=== PATIENT | male | born 1950 | race Caucasian/White ===

== ENCOUNTER → 2022-08-09 | Outpatient (CLI) | payer MEDICARE, SELFPAY ==
--- NOTE | 2022-08-11 10:13 | PFT ---
INTRODUCTION: The patient is a 72-year-old male that presents for pulmonary function studies secondary to a diagnosis of hypoxemia. Respiratory therapy reported good patient effort. Bronchodilators were used during testing. INTERPRETATION: Forced expiration spirometry demonstrates the presence of a mild large airways obstructive ventilatory defect. There was no significant response to aerosolized bronchodilators. Spirograms are of good quality but plateau slowly indicating slow emptying of the lungs. Body plethysmography was performed and demonstrated lung volumes to be within normal limits. Diffusing capacity by single breath CO was also within normal limits. IMPRESSION: Irreversible mild large airways obstructive ventilatory defect with preserved lung volumes and diffusing capacity.
== END | disposition home or self-care (01) ==
PROVIDERS: PCP Internal Medicine; Referring Provider Internal Medicine Critical Care Medicine; Visit Provider Internal Medicine Critical Care Medicine
DX: R09.02 Hypoxemia (principal)
CPT/HCPCS: 94060; 94726; 94729

== ENCOUNTER → 2022-08-14 | Outpatient (CLI) | payer MEDICARE, SELFPAY ==
[2022-08-14 12:41] VITALS: PULSE 73; PULSE 74; PULSE 76; PULSE 81; PULSE 85; PULSE 87; PULSE 92; PULSE 97; O2SAT 88; O2SAT 89; O2SAT 91; O2SAT 92; O2SAT 94
--- NOTE | 2022-08-14 12:43 | CPS ---
Patient wears 2-3 lpm at home. Wears 3 lpm pulse dose while ambulating. Patient started testing on room air, SpO2 91%. Patient experienced some dizziness and moderately severe hip pain during testing. Patient did not take any breaks during testing other than when I had him turn his O2 on at the 3rd minute.
--- NOTE | 2022-08-15 15:15 | PCM.PSN.6M ---
PSN 6 Minute Walk Test 6 Minute Walk Test 6 Minute Walk Test: 6 Minute Walk Test PSN:6-Minute Walk Test Start: 08/14/22 12:41 Freq: Status: Active Protocol: [id number].6MINW Document 08/14/22 12:41 SATHISH (Rec: 08/14/22 12:45 SATHISH [id number]) 6 Minute Walk Test Date Performed 08/14/22 Time Performed 12:30 Height 6 ft Weight: 86.183 kg Weight in Pounds 190.[address]: Alfredito Rice Assistive device used: None Pre-test Oxygen Delivery Method Room Air Pulse Ox (%) 91 Pulse Rate (60-100 beats/min) 73 Dyspnea Rebeca Scale (0-10) 0 Exertion Rebeca Scale (6-20) 6 1st minute Oxygen Delivery Method Room Air Pulse Ox (%) 91 Pulse Rate (60-100 beats/min) 76 2nd minute Oxygen Delivery Method Room Air Pulse Ox (%) 89 Pulse Rate (60-100 beats/min) 81 3rd minute Oxygen Delivery Method Room Air Pulse Ox (%) 88 Pulse Rate (60-100 beats/min) 92 4th minute Oxygen Flow Rate (L/min) (L/min) 3 Oxygen Delivery Method Nasal Cannula Pulse Ox (%) 92 Pulse Rate (60-100 beats/min) 85 5th minute Oxygen Flow Rate (L/min) (L/min) 3 Oxygen Delivery Method Nasal Cannula Pulse Ox (%) 92 Pulse Rate (60-100 beats/min) 87 6th minute Oxygen Flow Rate (L/min) (L/min) 3 Oxygen Delivery Method Nasal Cannula Pulse Ox (%) 92 Pulse Rate (60-100 beats/min) 97 Dyspnea Rebeca Scale (0-10) 3 Exertion Rebeca Scale (6-20) 14 Post-test Oxygen Flow Rate (L/min) (L/min) 3 Oxygen Delivery Method Nasal Cannula Pulse Ox (%) 94 Pulse Rate (60-100 beats/min) 74 Full Laps Walked 20 Partial Lap, Number of Tiles Walked 10 Total Distance Walked (ft) 1190 08/14/22 12:43 Cardiopulmonary Services by Anna Forbes Patient wears 2-3 lpm at home. Wears 3 lpm pulse dose while ambulating. Patient started testing on room air, SpO2 91%. Patient experienced some dizziness and moderately severe hip pain during testing. Patient did not take any breaks during testing other than when I had him turn his O2 on at the 3rd minute. Initialized on 08/14/22 12:43 - END OF NOTE Interpretation Interpretation: The patient was noted to be 91% on room air at rest. The patient then started ambulating, but desaturated to 80% in the third minute. The patient was placed on 3 L pulsed dose and was able to maintain saturations throughout testing. No significant tachycardia was noted. In total, the patient traveled 1190 feet over the course of 6 minutes with the assistance of a cane and 1 break. Recommendations Recommendations: No supplemental oxygen is indicated at rest, but patient should be using 3 L pulsed dose with any ambulation.
== END | disposition home or self-care (01) ==
LOC: PSN 12:03
PROVIDERS: PCP Internal Medicine; Visit Provider Internal Medicine Critical Care Medicine
DX: R09.02 Hypoxemia (principal)
CPT/HCPCS: 94618

== ENCOUNTER → 2022-09-22 | Outpatient (CLI) | payer MEDICARE, SELFPAY ==
--- NOTE | 2022-09-22 11:46 | NM_ITS ---
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 VENTILATION-PERFUSION LUNG SCINTIGRAPHY COMPARISON: None available FINDINGS: The patient was administered 50.0 mCi 99m Tc DTPA aerosol. The aerosol ventilation study demonstrates heterogeneous ventilation identified throughout the bilateral lung boss. Central clumping of the aerosol is noted in the bilateral hemithorax. Following the intravenous administration of 5.5 mCi of 99m Tc MAA the pulmonary perfusion study reveals relatively uniform perfusion throughout both lung boss. There are no segmental or subsegmental perfusion defects identified. There are no ventilation-perfusion mismatches observed. Quantitative perfusion analysis results: Total Right lun.9 % - right upper lung zone: 12.1 % - right mid lung zone: 25.0 % - right lower lung zone: 18.8 % Total Left lun.1 % - left upper lung zone: 12.2 % - left mid lung zone: 24.5 % - left lower lung zone: 7.5 % NM/Quant Lung Vent/Perf Scan IMPRESSION: 1. NORMAL 99m Tc MAA pulmonary perfusion imaging examination, according to PIOPED II interpretive criteria. (Sotsman et al, Radiology 246: 941, 2008 Soanshu et al, J Nucl Med 49: 1741, 2008). 2. Central clumping of the aerosol may be secondary to obstructive airway mechanics and or clinical tachypnea. 3. Patients with documented pulmonary hypertension and the presence of low probability, very low probability and normal ventilation-perfusion lung scintigraphy are associated with a LOW likelihood of thromboembolic pulmonary hypertension. (Jarred et al, Chest 84: 679, 1983 Lisbona et al, AJR 144: 27, 1985). Electronically Signed: John Paul Goldstein, at 13:48 EST ,
--- NOTE | 2022-09-22 11:46 | ECHOD_ITS ---
Reason For Study: PHTN, CHAR Procedure This was a 2D Doppler, Color Flow transthoracic echocardiogram. The study was technically difficult. Due to deep respirations. Exam performed in department. Left Ventricle Normal LV size. Apical false tendon noted. Left ventricular systolic function is normal. The estimated ejection fraction is 65 %. No evidence for diastolic dysfunction. No regional wall motion abnormalities noted. Right Ventricle Normal RV size. Normal systolic function. Atria Normal left atrium. Normal right atrium. No doppler evidence for ASD. Bubble contrast study negative for right to left interatrial shunt. Mitral Valve There is no mitral annular calcification. Normal mitral valve. Trivial mitral valve insufficiency. Tricuspid Valve Normal tricuspid valve. Trivial tricuspid valve insufficiency. Right ventricular systolic pressure estimated to be 32 mmHg. Aortic Valve Trisinus/trileaflet aortic valve. Mild focal aortic valve calcification. Pulmonic Valve The pulmonic valve is not well visualized. Great Vessels Normal sized aortic root. Calcified aortic root. Pericardium/Pleural No pericardial effusion. Medication Performed a rapid injection of agitated mix of 9 cc saline and 1cc air to assess for atrial septal defect. MMode/2D Measurements & Calculations LVIDd: 4.1 cm IVSd: 0.95 cm Ao root diam: 3.6 cm LVIDs: 2.7 cm LVPWd: 1.0 cm RVDd: 2.8 cm FS: 34.1 % LAV(MOD-bp): 56.5 ml LA A4 area: 17.5 cm2 LA dimension(2D): 4.4 cm LAV(MOD-bp) Indexed: 26.8 ml/m2 LAV(MOD-sp2): 64.9 ml LAV(MOD-sp4): 47.4 ml RA A4 area: 15.3 cm2 Time Measurements MV dec time: 0.29 sec Doppler Measurements & Calculations MV E max breezy: 67.6 cm/sec Lat Peak E' Breezy: 10.3 cm/sec Med Peak E' Breezy: 8.0 cm/sec MV A max breezy: 85.1 cm/sec E/E' lat: 6.6 E/E' med: 8.4 MV E/A: 0.79 MV dec slope: 235.8 cm/sec2 Ao V2 max: 156.5 cm/sec LV V1 max: 117.9 cm/sec Ao max P.8 mmHg LV V1 max P.6 mmHg Ao V2 mean: 100.7 cm/sec LV V1 mean P.7 mmHg Ao mean P.7 mmHg LV V1 mean: 75.1 cm/sec Ao V2 VTI: 35.0 cm LV V1 VTI: 25.4 cm AV (velocity ratio): 0.73 PA V2 max: 146.8 cm/sec TR max breezy: 270.5 cm/sec PA V2 mean: 98.4 cm/sec TR max P.3 mmHg ECHO/Echo Complete Interpretation Summary The study was technically difficult. Left ventricular systolic function is normal. The estimated ejection fraction is 65 %. Apical false tendon noted. Trivial mitral valve insufficiency. Trivial tricuspid valve insufficiency. Mild focal aortic valve calcification. Calcified aortic root. Right ventricular systolic pressure estimated to be 32 mmHg. No evidence for diastolic dysfunction. Bubble contrast study negative for right to left interatrial shunt. Ordering Physician: Alfredito Rice Referring Physician: Chata Dawn Performed By: Alessandra Marcelo RDCS, RVT
== END | disposition home or self-care (01) ==
PROVIDERS: PCP Internal Medicine; Visit Provider Internal Medicine Critical Care Medicine
DX: R09.02 Hypoxemia (principal); G47.33 Obstructive sleep apnea (adult) (pediatric)
CPT/HCPCS: 78598; 93306; A9540; A9567

== ENCOUNTER → 2023-01-23 | Outpatient (CLI) | payer MEDICARE, SELFPAY | END | disposition home or self-care (01) | PROVIDERS: PCP Internal Medicine; Referring Provider Urology; Visit Provider Urology | DX: R31.9 Hematuria, unspecified (principal) | CPT/HCPCS: 87077; 87086; 87088; 87186 ==

== ENCOUNTER → 2023-05-29 | Outpatient (CLI) | payer MEDICARE, SELFPAY ==
--- NOTE | 2023-05-29 07:09 | CT_ITS ---
EXAM: CT CHEST WITHOUT INTRAVENOUS CONTRAST CLINICAL INDICATION: smoker TECHNIQUE: Helically acquired images were obtained of the chest without intravenous contrast. This CT exam was performed using one or more of the following dose reduction techniques: automated exposure control, adjustment of the mA and/or kV according to patient size, and/or use of iterative reconstruction technique. RADIATION DOSE: CTDIvol = 3.02 mGy, DLP = 100.81 mGy-cm COMPARISON: No relevant prior studies available. FINDINGS: LUNGS AND PLEURAL SPACES: Benign calcified granuloma in the right upper lobe. Diffuse moderate emphysematous changes, as well as some scarring/fibrosis in the costophrenic angles. No pleural effusion or thickening. No pneumothorax. No suspicious pulmonary nodules identified. HEART: Coronary artery calcifications. Heart size is normal. No pericardial effusion. MEDIASTINUM: Unremarkable. No mediastinal or hilar adenopathy. Esophagus is unremarkable. No hiatal hernia. THYROID: Unremarkable. No thyroid lesions. BONES/JOINTS: Degenerative changes of the spine. No suspicious lytic or blastic abnormality. VASCULATURE: Mild atherosclerotic changes and ectasia of the thoracic aorta but no aneurysm. CT/Low Dose CT Lung Screening IMPRESSION: 1. No suspicious pulmonary nodules identified. 2. Diffuse moderate emphysematous changes, as well as some scarring/fibrosis in the costophrenic angles. 3. Coronary artery calcifications. ACR Lung CT Screening Reporting And Data System (Lung-RADS) score: 1S - Negative. Additional clinically significant or potentially clinically significant findings are described. Recommend continued annual screening with a low-dose CT (LDCT) in 12 months. Electronically Signed: Cuate Chavira MD at 6:36 EDT ,
== END | disposition home or self-care (01) ==
LOC: CT 07:08
PROVIDERS: PCP Internal Medicine; Referring Provider Nurse Practitioner Acute Care; Visit Provider Nurse Practitioner Acute Care
DX: Z12.2 Encounter for screening for malignant neoplasm of respiratory organs (principal); F17.210 Nicotine dependence, cigarettes, uncomplicated
CPT/HCPCS: 71271

== ENCOUNTER → 2024-05-12 | Outpatient (CLI) | payer MEDICARE, SELFPAY ==
[2024-05-12 15:10] LABS: PSA,Total - Annual Screen 0.54 ng/mL (0.00-4.00)
== END | disposition home or self-care (01) ==
PROVIDERS: PCP Internal Medicine; Referring Provider Nurse Practitioner; Visit Provider Nurse Practitioner
DX: Z12.5 Encounter for screening for malignant neoplasm of prostate (principal)
CPT/HCPCS: 36415; 84153; G0103

== ENCOUNTER → 2025-04-20 | Outpatient (CLI) | payer MEDICARE, SELFPAY ==
[2025-04-20 10:57] LABS: AST(SGOT) 20 U/L (<=37); Alanine Aminotransfer ALT/SGPT 19 U/L (<=46); Albumin, Serum 3.9 g/dL (3.4-4.8); Alkaline Phosphatase 103 U/L (40-129); Bilirubin, Direct 0.16 mg/dL (0.00-0.30); Globulin 2.1 g/dL (2.2-4.2)
[2025-04-20 11:53] LABS: Hematocrit 38.4 % (40-54); Hemoglobin 12.7 g/dL (13.0-16.5); Immature Granulocytes Count 0.000 X10^3/uL (0.0-0.0); Mean Corp Hgb Conc 33.1 g/dL (32-36); Mean Corpuscular Volume 97.7 fL (80-94); Mean Platelet Vol. 10.9 fl (6.2-12.0); NRBC Flagged by Analyzer 0 % (0-5); Platelet Count 279 K/mm3 (150-450); RBC Distribution Width CV 15.3 % (11.6-14.6); RBC Distribution Width SD 55.3 fl (35.1-43.9); Red Blood Count 3.93 M/mm3 (4.6-6.2); White Blood Count 6.7 K/mm3 (4.4-11.0)
== END | disposition home or self-care (01) ==
LOC: LABSPEC 10:08
PROVIDERS: PCP Internal Medicine; Referring Provider Internal Medicine Infectious Disease; Visit Provider Internal Medicine Infectious Disease
DX: K75.0 Abscess of liver (principal); K65.1 Peritoneal abscess; B96.20 Unspecified Escherichia coli [E. coli] as the cause of diseases classified elsewhere
CPT/HCPCS: 80076; 82565; 85025

== ENCOUNTER → 2025-07-20 | Outpatient (CLI) | payer MEDICARE, SELFPAY ==
[2025-07-20 13:13] LABS: PSA,Total - Annual Screen 0.51 ng/mL (0.02-4.00)
== END | disposition home or self-care (01) ==
LOC: LAB 11:25
PROVIDERS: Referring Provider Urology; Visit Provider Urology
DX: Z12.5 Encounter for screening for malignant neoplasm of prostate (principal)
CPT/HCPCS: 36415; 84153; G0103